=== PATIENT | male | born 1990 | race African-American/Black ===

== ENCOUNTER 2024-06-22 16:16 | Emergency (ER) | payer OTHER ==
[2024-06-22 16:29] VITALS: RESP 20; TEMP 99.1
--- NOTE | 2024-06-22 17:16 | ED ---
General Adult HPI - General Chief complaint: Recheck/Abnormal Lab/Rx Stated complaint: stitches- wire are coming out of mouth Time Seen by Provider: 06/22/24 16:30 Source: patient, RN notes reviewed, old records reviewed Mode of arrival: ambulatory Limitations: no limitations - History of Present Illness Initial comments: This is a 33-year-old male who presents to the emergency department complaining that he had some surgery recently on his jaw and a wire has come loose and is sticking out of his mouth by about an inch and a half. Patient is requesting that I cut that off and rounded over so that does not keep poking him in the gum and lip. Patient has follow-up with his surgeon on the eighth - Related Data Allergies Allergy/AdvReac Type Severity Reaction Status Date / Time No Known Allergies Allergy Verified 06/22/24 16:29 Review of Systems ROS Statement: Those systems with pertinent positive or pertinent negative responses have been documented in the HPI. ROS Other: All systems not noted in ROS Statement are negative. Past Medical History Past Medical History: No Reported History History of Any Multi-Drug Resistant Organisms: None Reported Additional Past Surgical History / Comment(s): Jaw Past Psychological History: No Psychological Hx Reported Smoking Status: Former smoker Past Alcohol Use History: Abuse Past Drug Use History: Cocaine, Opiates General Exam - General Exam Comments Initial Comments: GENERAL Patient is well-developed and well-nourished. Patient is in mild distress. EYES Patient's pupils are equal and round. Extraocular motion is intact MOUTH On the bottom teeth the patient has wires going through them and one wire has broken off and it is sticking out of his mouth by about an inch and a half. SKIN Unremarkable NEURO The patient is alert and oriented A&Ox3 PYSCH Patient has normal interpersonal interactions. Limitations: no limitations Course Vital Signs 06/22/24 16:27 Temperature 99.1 F Pulse Rate 74 Respiratory 20 Rate Blood Pressure 117/67 O2 Sat by Pulse 99 Oximetry Procedures - Procedures Initial comment: Patient had a wire on his teeth after he had some sort of jaw surgery and the wire was sticking out of his mouth by about an inch and a half I snipped the wire off and bent the wire over so there was no sharp piece hitting the patient's gum or lip. Medical Decision Making - Medical Decision Making Was pt. sent in by a medical professional or institution (Dr., PA, ENGINEERING PRODUCTION WORKER, urgent care, hospital, or usp...) When possible be specific @ -No Did you speak to anyone other than the patient for history (EMS, parent, family, police, friend...)? What history was obtained from this source @ -No Did you review nursing and triage notes (agree or disagree)? Why? @ -I reviewed and agree with nursing and triage notes Were old charts reviewed (outside hosp., previous admission, EMS record, old EKG, old radiological studies, urgent care reports/EKG's, usp records)? Report findings @ -No old charts were reviewed Differential Diagnosis? @ -Chest pain, altered mental status, abdominal pain women, abdominal pain men, vaginal bleeding, weakness, fever, dyspnea, syncope, headache, dizziness, GI bleed, back pain, seizure, CVA, palpatations, mental health, musculoskeletal EKG interpreted by me (3pts min.). @ -As above X-rays interpreted by me (1pt min.). @ -None done CT interpreted by me (1pt min.). @ -None done U/S interpreted by me (1pt. min.). @ -None done What testing was considered but not performed or refused? (CT, X-rays, U/S, labs)? Why? @ -None What meds were considered but not given or refused? Why? @ -None Did you discuss the management of the patient with other professionals (professionals i.e. PETER Willams, ENGINEERING PRODUCTION WORKER, lab, RT, psych nurse, social and human services assistant, renewals specialist, teacher, investigation officer, case fitter)? Give summary @ -No Was smoking cessation discussed for >3mins.? @ -No Was critical care preformed (if so, how long)? @ -No Were there social determinants of health that impacted care today? How? (Homelessness, low income, unemployed, alcoholism, drug addiction, transportation, low edu. Level, literacy, decrease access to med. care, prison, rehab)? @ -No Was there de-escalation of care discussed even if they declined (Discuss DNR or withdrawal of care, Hospice)? DNR status @ -No What co-morbidities impacted this encounter? (DM, HTN, Smoking, COPD, CAD, Cancer, CVA, ARF, Chemo, Hep., AIDS, mental health diagnosis, sleep apnea, morbid obesity)? @ -None Was patient admitted / discharged? Hospital course, mention meds given and route, prescriptions, significant lab abnormalities, going to OR and other pertinent info. @ -The patient had a wire sticking out of his mouth that was used to keep his teeth together after jaw surgery I snipped the wire off and the way around it was no longer protruding and rubbing up against his gum or lip. Patient states he is enrique follow-up with his surgeon on the eighth. Patient also was told to pepper picker some dental wax at the pharmacy so that none of the areas are rubbing against his lip. Undiagnosed new problem with uncertain prognosis? @ -No Drug Therapy requiring intensive monitoring for toxicity (Heparin, Nitro, Insulin, Cardizem)? @ -No Were any procedures done? @ -No Diagnosis/symptom? @ -Dental procedure Acute, or Chronic, or Acute on Chronic? @ -Acute Uncomplicated (without systemic symptoms) or Complicated (systemic symptoms)? @ -Uncomplicated Side effects of treatment? @ -No Exacerbation, Progression, or Severe Exacerbation? @ -No Poses a threat to life or bodily function? How? (Chest pain, USA, CT, pneumonia, PE, COPD, DKA, ARF, appy, cholecystitis, CVA, Diverticulitis, Homicidal, Suicidal, threat to staff... and all critical care pts) @ -No Disposition Clinical Impression: Pain, dental Disposition: HOME SELF-CARE Condition: Good Additional Instructions: Patient should follow-up with his oral surgeon Is patient prescribed a controlled substance at d/c from ED?: No Referrals: None,Stated [Primary Care Provider] - 1-2 days Time of Disposition: 17:16
[2024-06-22 17:44] VITALS: BP 120/70; PULSE 68
== END 2024-06-22 17:30 | disposition home or self-care (01) ==
LOC: EC 16:16
DX: K08.89 Other specified disorders of teeth and supporting structures (principal); Z87.891 Personal history of nicotine dependence
CPT/HCPCS: 99283